=== PATIENT | female | born 1960 | race Caucasian/White ===

== ENCOUNTER 2017-09-21 09:17 | Outpatient (CLI) | payer OTHER | END 2017-09-21 09:18 | disposition home or self-care (01) | LOC: LAB 09:17 | PROVIDERS: ATTEND Nurse Practitioner Family | DX: E78.5 Hyperlipidemia, unspecified (principal); I10 Essential (primary) hypertension; Z72.0 Tobacco use | CPT/HCPCS: 36415; 80053; 80061; 84443; 85025 ==

== ENCOUNTER 2017-10-15 14:32 | Outpatient (CLI) | payer OTHER ==
--- NOTE | 2017-10-15 16:25 | DI ---
Exam: Four x-rays of the right knee. Comparison: None available. Reason for exam: Pain in right knee FINDINGS: No acute fracture or dislocation. There is tricompartmental arthrosis with joint space na rrowing and osteophyte formation. No large joint effusion is seen. No unexplained calcific soft tis camille density or radiopaque retained foreign body. Impression: 1. No acute fracture or dislocation in the right knee. 2. Moderate to marked degenerative disease with tricompartmental arthrosis and joint space narrowing .
--- NOTE | 2017-10-15 16:25 | DI ---
EXAM: Radiographs, left knee HISTORY: Left knee pain. COMPARISON: None available. TECHNIQUE: Four views. FINDINGS: Bone mineralization is normal. There is no fracture or dislocation. Moderate medial comp artment joint space narrowing noted with moderate tricompartmental marginal osteophyte formation. No erosive changes are seen. Soft tissues are unremarkable. IMPRESSION: Moderate tricompartmental osteoarthritis.
== END 2017-10-15 14:33 | disposition home or self-care (01) ==
LOC: RAD 14:32
PROVIDERS: ATTEND Nurse Practitioner Family
DX: M25.561 Pain in right knee (principal); M25.562 Pain in left knee; G89.29 Other chronic pain

== ENCOUNTER 2018-02-11 08:54 | Outpatient (CLI) ==
--- NOTE | 2018-02-11 10:53 | MRI ---
EXAM: MRI left knee without contrast. HISTORY: Pain. No left knee surgery reported. Chronic x 3 years.. TECHNIQUE: Using a local extremity coil on a high field strength magnet multiplanar multisequence ma gnet resonance imaging was performed of the left knee without intravenous or intra-articular gadolini um contrast.. COMPARISON: Four view plain film examination left knee 10/15/2017.. FINDINGS: Within the medial compartment there is degenerative inner margin radial tearing medial men iscus. Some loss of hoop containment with slight meniscal extrusion. There is marked diffuse chondr osis with cartilage ulceration/denudation. Joint centered subchondral edema/remodeling/cyst formatio n. Productive osteophyte formation. Within the lateral compartment the lateral meniscus is intact without discrete surfacing meniscal tea r. Mild lateral compartment chondrosis. No underlying subchondral edema. Productive osteophyte for mation. Within the patellofemoral compartment the patella seated with patellar chondrosis/chondromalacia licea lla showing cartilage ulceration most evident over the medial facet. Corresponding chondrosis and ca rtilage ulceration over the medial trochlear groove. Productive osteophyte formation. Moderate sized left knee effusion. Prominent plica. Synovitis. No large osteochondral loose bodies . Intact ACL and PCL ligamentous fibers. The extensor mechanism is intact. The medial collateral l igament intact albeit bowed medially. Lateral collateral ligament complex intact as is the posterola teral corner. Trace posterior joint extension/popliteal cyst.. IMPRESSION: Degenerative inner margin radial tearing medial meniscus. Some loss of hoop containment with slight meniscal extrusion. Marked tricompartmental osteoarthrosis, medial compartment dominant, as described. Moderate sized left effusion. Prominent plica. Synovitis. Intact cruciate and collateral ligaments.
== END 2018-02-11 08:55 | disposition home or self-care (01) ==
LOC: RAD 08:54
PROVIDERS: ATTEND Nurse Practitioner Family
DX: M25.562 Pain in left knee (principal); G89.29 Other chronic pain; M23.8X2 Other internal derangements of left knee

== ENCOUNTER 2018-03-21 08:47 | Outpatient (CLI) | payer OTHER | END 2018-03-21 08:48 | disposition home or self-care (01) | LOC: LAB 08:47 | PROVIDERS: ATTEND Nurse Practitioner Family | DX: E78.5 Hyperlipidemia, unspecified (principal); I10 Essential (primary) hypertension | CPT/HCPCS: 36415; 80053; 80061; 85025 ==

== ENCOUNTER 2018-03-27 13:58 | Outpatient (RCR) ==
--- NOTE | 2018-03-27 16:30 | RS.OPPTEV2 ---
Date of Note: 03/27/18 Visit #: 1 Date of Evaluation: 03/27/18 Treatment Diagnosis: Bilateral knee pain, left knee weakness, left knee stiffness History of Condition/Mechanism of Injury:: Patient reports progressive knee pain over the last three years. Reports no known injury. States she has not had therapy for her knees. Prior Level of Function.....Patient was independent with: ADL's, Self Care, Caregiving, Ambulation/Mobility, Community Integration/Access Functional Limitations: Standing, Squatting, Ambulation, Community Access/ Integration Current Subjective/complaints:: Ms. Meek reports bilateral knee pain. States the left knee usually bothers her more. States both knees feel weak. She has not had to use an assistive device for ambulation. She has not fallen, but has felt like her legs could give out at times. States her knee pain intensity varies and she does not know why. She has stairs at home that she has to negotiate to access a bathroom. States stairs are difficult for her. She usually has to take one step at a time and hold onto the wall. States her daughter has a pool that she can do some exercises in. She lives in [place], which is 30 miles from [place]. She asks if she could mainly work on an exercise program at home and not come as frequently as the doctor ordered, since she lives so far away. Medical History Medical History: Hypertension, Arthritis Surgical History Comments:: No prior LE surgery Smoking Status: Current every day smoker Hx Home Medications: Lisinopril, Clonidin, Tramadol, Metoprolol, Meloxicam, Tylenol Patient's Goals: Her goal is to get some relief of knee pain. Pain Assessment - Pain Description Pain Location: bilateral knee joints. Pain Description: Aching Current Pain Intensity: 8/10 Worst Pain Intensity: 10/10 Functional Outcome Measure LE Functional Scale: 26 (26/80=67.5% impairment) - G Codes & Severity Modifier G Codes & Modifier: Na Source of G Code score: NA Observation - Observation Inspection: Left knee presents to be larger in size than the right knee joint. Girth Measurement Lower: Superior patella: left 48 cm, right 45.5 cm. Inferior patella: left 38 cm, right 36 cm Gait - Gait Pattern Gait Comments: Patient ambulates without an assistive device, independently. She demonstrates decreased stance on the left LE, and decreased knee and hip flexion on the left LE. - Left Knee ROM Left Knee Extension: -7 degrees from full extension Left Knee Flexion: 115 (degrees AROM) Knee ROM Limitations: Soft Tissue Tightness - Right Knee ROM Right Knee Extension: -2 degrees from full extension Right Knee Flexion: 125 (degrees AROM) - Left Knee Strength Left Knee Extension: 4 Good Left Knee Flexion: 4 Good Comments: Left hip strength generally 4/5 throughout. - Right Knee Strength Right Knee Extension: 4+ Good + Right Knee Flexion: 4+ Good + Comments: Right hip 4+ to 5/5 throughout. Palpation Comments:: Denies tenderness to palpation throughout either knee joint. Sensation - Sensation Right Lower Extremity: Intact/Normal Left Lower Extremity: Intact/Normal Additional Comments: Additional Comments: Left SLR in supine to 30-35 degrees, Right SLR to 40 degrees. Interventions - Exercise/Activities/Manual Therapy Exercises/Activities: Patient shown pictures of the knee anatomy and explained OA, bone spurs, and meniscus injuries. Patient instructed in HEP of quad sets, SAQ's, standing HS curls, SLR, and HS and heelcord stretch. Also given exercises to perform in the pool of standing SLR into hip flexion and abduction , mini knee bends, and HS curls. Total minutes of Exercise: X 14 mins Manual Therapy: NA HOME EXERCISE PROGRAM: quad sets, SAQ's, standing HS curls, SLR, and HS and heelcord stretch. Also given exercises to perform in the pool of standing SLR into hip flexion and abduction, mini knee bends, and HS curls. - Charges Timed Code Treatment Minutes: 14 mins Total Treatment Time: 48 mins Procedures billed for this date of service:: SAROJ Sorenson, EX EVALUATION COMPLEXITY LEVEL EVALUATION COMPLEXITY LEVEL: HISTORY: Low, EXAM OF BODY SYSTEMS: Low, CLINICAL PRESENTATION: Low, CLINICAL DECISION MAKING: Low Assessment Assessment: Patient presents to therapy with a diagnosis of primary osteoarthritis bilateral knee joints. She presents with bilateral knee pain and exhibits weakness of the left hip and knee, along with decreased left knee ROM. She reports difficulty with ambulation and stairs. She displays gait deviations due to weakness and knee pain. She presents to be a good candidate to benefit from therapy for Left knee stretching/ROM exercises, and strengthening exercises to reduce her pain. Patient Education: Education of diagnosis, Body/Joint mechanics, Home Exercise Program, Home Safety, Activity Modification Rehab Potential: Good Short Term Goals Goal #1: Pt independent and compliant with HEP. Goal to be met by: 04/10/18 Goal #2: Left knee extension to -2 degrees. Goal to be met by: 04/10/18 Goal #3: Left quad strength 4+/5. Goal to be met by: 04/10/18 [facility]sp Goals Goal #1: Pt knows HEP and to continue ex's to maintain level of function at D/C. Goal to be met by: 05/11/18 Goal #2: Score on LE functional scale to 46/80. Goal to be met by: 05/11/18 Goal #3: Pt able to negotiate stairs with minimal difficulty. Goal to be met by: 05/11/18 Goal #4: Pt able to perform daily activities with minimal knee pain. Goal to be met by: 05/11/18 Plan - Treatment to be Provided Procedures: Therapeutic Exercises, Therapeutic Activity, Patient Education Modalities: No Modalities - Treatment Plan Frequency: 2 X week Duration: 6 weeks ORDER # VISITS AND/OR THROUGH DATE: 05/11/18 - Treatment Code (1) Knee pain Code(s): M25.569 - PAIN IN UNSPECIFIED KNEE Qualifiers: Chronicity: chronic Laterality: bilateral Qualified Code(s): M25.561 - Pain in right knee; M25.562 - Pain in left knee; G89.29 - Other chronic pain (2) Knee stiffness Qualifiers: Laterality: left Qualified Code(s): M25.662 - Stiffness of left knee, not elsewhere classified (3) Gait abnormality Code(s): R26.9 - UNSPECIFIED ABNORMALITIES OF GAIT AND MOBILITY Comments: R26.9 (4) Primary osteoarthritis Code(s): M19.91 - PRIMARY OSTEOARTHRITIS, UNSPECIFIED SITE Qualifiers: Osteoarthritis location: knee Laterality: bilateral Qualified Code(s): M17.0 - Bilateral primary osteoarthritis of knee
== END 2018-04-02 23:59 ==
PROVIDERS: ATTEND Orthopaedic Surgery
DX: M17.0 Bilateral primary osteoarthritis of knee (principal); M25.561 Pain in right knee; M25.562 Pain in left knee; G89.29 Other chronic pain; M25.662 Stiffness of left knee, not elsewhere classified; R26.9 Unspecified abnormalities of gait and mobility

== ENCOUNTER 2018-10-01 11:25 | Outpatient (CLI) ==
--- NOTE | 2018-10-01 13:41 | DI ---
EXAM: Left ankle. [place] HISTORY: Fall from other stairs and steps, initial encounter COMPARISON: None FINDINGS: Mildly displaced, obliquely oriented fracture distal diaphysis fibula. Ankle mortise symm etric. Mild degenerative change about the ankle. Small plantar calcaneal spur and mild posterior ca lcaneal enthesopathy. Mild soft tissue swelling laterally. IMPERSSION: 1. Mildly displaced, obliquely oriented fracture distal diaphysis fibula. 2. Mild degenerative change about the ankle. 3. Calcaneal spurring. 4. Soft tissue swelling
--- NOTE | 2018-10-01 13:44 | DI ---
EXAM: Left lower leg HISTORY: Fall from other stairs and steps, initial encounter COMPARISON: None FINDINGS: Mildly displaced, obliquely oriented fracture distal diaphysis fibula. Ankle mortise symm etric. Mild degenerative change about the ankle. Osteoarthritis about the knee. Mild soft tissue s welling laterally. IMPERSSION: 1. Mildly displaced, obliquely oriented fracture distal diaphysis fibula. 2. Mild degenerative change about the ankle. Osteoarthritis about the knee. 3. Soft tissue swelling
== END 2018-10-01 11:26 | disposition home or self-care (01) ==
LOC: RAD 11:25
PROVIDERS: ATTEND Nurse Practitioner Family
DX: M79.605 Pain in left leg (principal); M25.572 Pain in left ankle and joints of left foot; I10 Essential (primary) hypertension; E78.5 Hyperlipidemia, unspecified; W10.8XXA Fall (on) (from) other stairs and steps, initial encounter
CPT/HCPCS: 36415; 80053; 80061; 84443; 85025